=== PATIENT | male | born 1970 | race Hispanic/Latino ===

== ENCOUNTER 2019-03-23 10:11 | Emergency (ER) | payer BC, OTHER ==
[2019-03-23] MEDS ORDERED: Ondansetron ODT 4 MG TAB ONE (10:20)
[2019-03-23] MEDS ORDERED: Acetaminophen 500 MG TAB ONE (10:20)
--- NOTE | 2019-03-23 10:54 | CT ---
Cervical spine CT without contrast: 03/23/2019 COMPARISON: None HISTORY: Injury, trauma, pain TECHNIQUE: Axial CT imaging at 2.5 mm intervals from skull base through lung apices without contrast. Coronal and sagittal reformatted imaging obtained. FINDINGS: The C1 ring is intact. The occipital condyles, dens, and the C1-2 articulation demonstrate no acute findings. There is moderate degenerative change at the atlantoaxial interspace. Cervical vertebral body height and alignment appears within normal limits. The craniocervical junction and the cervicothoracic junction appear intact. There is no prevertebral soft tissue swelling seen. No acute osseous abnormality noted. The visualized lung apices appear unremarkable. IMPRESSION: No acute findings.
--- NOTE | 2019-03-23 11:04 | CT ---
CT BRAIN WITHOUT CONTRAST: Date: 03/23/19 HISTORY: Head injury, headache, nausea, and dizziness. FINDINGS: No evidence of acute infarct, hemorrhage, midline shift, or abnormal extra-axial fluid collections ar e seen. There is a small focal area of decreased attenuation in the left frontal lobe which may repre sent remote insult. The other possibilities are mid chronic small vessel ischemic disease. The ventri cular size is normal and the basilar cisterns are patent. The bony calvarium is intact. The visualize d paranasal sinuses are well aerated. IMPRESSION: No CT evidence of acute intracranial process. POS: [facility]
== END 2019-03-23 11:30 | disposition home or self-care (01) ==
LOC: ERS 10:11
DX: S02.2XXA Fracture of nasal bones, initial encounter for closed fracture (principal); E03.9 Hypothyroidism, unspecified; F17.210 Nicotine dependence, cigarettes, uncomplicated; Z79.899 Other long term (current) drug therapy; W22.8XXA Striking against or struck by other objects, initial encounter
CPT/HCPCS: 70450; 72125; Q0162

== ENCOUNTER 2019-04-12 07:40 | Day surgery (SDC) | payer OTHER ==
[2019-04-11 14:16] VITALS: BMI 35.5
[2019-04-12] MEDS ORDERED: Ondansetron PF 4 MG/2 ML Vial ONE (10:00)
[2019-04-12] MEDS ORDERED: Dexamethasone 20 MG/5 ML VIAL ONE (10:00)
[2019-04-12] MEDS ORDERED: PHENYLEPHRINE-NS 100 MCG/ML 10 ML SYRINGE ONE (10:00)
[2019-04-12] MEDS ORDERED: PROPOFOL 200 MG/20 ML VIAL ONE (10:00)
[2019-04-12] MEDS ORDERED: Lidocaine 1% PF 5 ML VIAL ONE (10:00)
[2019-04-12] MEDS ORDERED: Succinylcholine Chloride 20 MG/ML 10 ml SYRINGE FS ONE (10:00)
[2019-04-12] MEDS ORDERED: Fentanyl 100 MCG/2 ML VIAL ONE (13:20)
[2019-04-12] MEDS ORDERED: Midazolam HCl 2 mg/2 ml Vial ONE (13:21)
[2019-04-12] MEDS ORDERED: Oxymetazoline HCl 0.05% ( 15 ML ) ONE (13:23)
[2019-04-12] MEDS ORDERED: EPINEPHrine 1 MG/ML AMP ONE (13:23)
[2019-04-12] MEDS ORDERED: Lidocaine 1% w/Epinephrine 1:100K 20 ML VIAL ONE (13:23)
--- NOTE | 2019-04-12 17:28 | EKG ---
Test Reason : PREOP Blood Pressure : / mmHG Vent. Rate : 060 BPM Atrial Rate : 060 BPM P-R Int : 180 ms QRS Dur : 088 ms QT Int : 422 ms P-R-T Axes : 028 068 080 degrees QTc Int : 422 ms Normal sinus rhythm Nonspecific T wave abnormality Abnormal ECG Confirmed by DR. Bong VU ([id number]) on 04/12/2019 5:28:30 PM Referred By: DENIA Confirmed By:DR. Bong VU
--- NOTE | 2019-04-13 08:21 | OP ---
DATE OF PROCEDURE: 04/12/2019 PREOPERATIVE DIAGNOSES: Profound left septal deformity, bilateral hypertrophic inferior turbinates. POSTOPERATIVE DIAGNOSES: Profound left septal deformity, bilateral hypertrophic inferior turbinates. PROCEDURES PERFORMED: Septoplasty and bilateral nasal endoscopy with submucosal resection of inferior turbinates. DESCRIPTION OF PROCEDURE: SEPTOPLASTY: After local anesthesia was infiltrated into the submucoperichondrial plane, a standard [place] incision was made with a #15 blade down to the level of the septal cartilage. The caudal elevator was used to elevate the mucoperichondrium from the underlying cartilage. We then proceeded beyond the bony cartilaginous junction and elevated the bony periosteum as well. Great attention was paid to the spur to prevent rent formation in the septal flap. A transcartilaginous incision was then made, while preserving an adequate dorsal and caudal cartilaginous strut for tip support. The deformed cartilage was removed and disarticulated from the bony cartilaginous junction and maxillary crest. This was placed in saline and would later be crushed and returned to the mucoperichondrial envelope. We then elevated the contralateral periosteum from the bony cartilaginous region and removed the deformed portions of the bone and bony spurs. The cartilage was then crushed and placed back into the mucoperichondrial envelope and the mucosa was re-approximated with a quilting stitch composed of rapidly absorbent gut suture. The Juan C incision was also closed with interrupted gut suture. At the completion of the case, Ryan splints were placed and suture secured to the caudal septum. BILATERAL NASAL ENDOSCOPY WITH SUBMUCOSAL RESECTION OF INFERIOR TURBINATES: After consent was obtained, the patient was identified, brought to the operating room, and placed on the operating room table in the supine position. Consent was obtained, notifying the patient of the possibility of additional infections, bleeding, brain injury, and eye/orbital injury. The patient was placed on the operating room table, and general endotracheal anesthesia and intravenous access was obtained. The patient was then positioned, prepped and draped for endoscopic sinus surgery. Nasal preparation included trimming nasal vestibular hairs and spraying in topical Afrin. We then placed Afrin topical solution on nasal pledgets and strategically located them intranasally. The perinasal mucosa was injected with 1% lidocaine with 1:100,000 epinephrine in the submucoperichondrial plane of the septum, lateral nasal wall, and anterior to the uncinate. The patient was then prepped and draped in a sterile fashion and positioned for endoscopic sinus surgery. With the 0-degree endoscope, the patient underwent systematic nasal endoscopy. There were no suspicious internasal masses or lesions identified. We then focused our attention to the osteomeatal complex region under the middle turbinate. The inferior turbinates were visualized with a 0 degree endoscope and outfractured with a [place] elevator. The inferior medial aspect was cauterized with the electrocautery. Hemostasis was obtained . After adequate airway was established, we turned our attention to the contralateral side and used a similar procedure. Again, a Kat elevator was used to outfracture inferior turbinates under endoscopic visualization. With a suction cautery, the free inferior medial aspect was cauterized under direct visualization along the length of the inferior turbinate. At this point, we then turned our attention to the contralateral side and proceeded with endoscopic sinus surgery. At the completion of the case, Rice keel splints were placed in the ethmoid cavities after the ethmoidectomy. There were no complications. The patient tolerated the procedure well and was discharged to the recovery room in stable condition prior to return to the preoperative day stay with ultimate discharge home. Prescriptions for pain medication and antibiotics were provided. The patient received intramuscular Depo-Medrol during the case. Job ID: [id number]
== END 2019-04-12 16:41 | disposition home or self-care (01) ==
LOC: SDC 07:40
PROVIDERS: ATTEND Specialist
PROC: 09SM0ZZ Reposition Nasal Septum, Open Approach (ICD-10-PCS; principal; 2019-04-12)
PROC: 09TL8ZZ Resection of Nasal Turbinate, Via Natural or Artificial Opening Endoscopic (ICD-10-PCS; principal; 2019-04-12)
DX: S02.2XXA Fracture of nasal bones, initial encounter for closed fracture (principal); J34.2 Deviated nasal septum; J34.3 Hypertrophy of nasal turbinates; F17.210 Nicotine dependence, cigarettes, uncomplicated; Z85.6 Personal history of leukemia; Z79.899 Other long term (current) drug therapy; W22.8XXA Striking against or struck by other objects, initial encounter; Y99.0 Civilian activity done for income or pay
CPT/HCPCS: 93005; 93010; J0171; J1100; J2001; J2250; J2405; J2704; J3010